=== PATIENT | male | born 2000 | race Caucasian/White ===

== ENCOUNTER 2024-02-10 22:29 | Emergency (ER) | payer BC ==
[2024-02-10] MEDS ORDERED: Tetracaine 0.5% PF 4 ML BOT ONE (22:31)
[2024-02-10] MEDS ORDERED: Fluorescein Opthalmic Strip ONE (22:32)
[2024-02-10] MEDS ORDERED: Ciprofloxacin 0.3% Ophth Soln 2.5 ml Bottle ONE (22:50)
[2024-02-10] MEDS ORDERED: HYDROcodone/Acetaminophen 10/325 mg Tablet ONE (22:59)
== END 2024-02-10 23:26 | disposition home or self-care (01) ==
LOC: MADERS 22:29
DX: H16.001 Unspecified corneal ulcer, right eye (principal)
CPT/HCPCS: 99283